=== PATIENT | male | born 1975 | race Caucasian/White ===

== ENCOUNTER 2023-06-29 08:56 | Emergency (ER) | payer OTHER, SELFPAY ==
--- NOTE | ~2023-06-29 | XR_ITS ---
EXAMINATION: XR finger 3rd RT min 2V DATE: 06/29/2023 09:11 INDICATION: Right hand third digit laceration. TECHNIQUE: 3 views of right hand third digit were obtained. COMPARISON: None. FINDINGS: Bone alignment is normal. No fracture. 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 There is soft tissue swelling of the third digit. IMPRESSION: 1. No fracture or radiopaque foreign body. Reviewed, dictated and finalized at location A.
[2023-06-29 08:57] VITALS: BP 148/97; PULSE 90; RESP 16; TEMP 36.3; O2SAT 98
--- NOTE | 2023-06-29 12:59 | ED.WOUNDLAC ---
HPI - Wound/Laceration General Chief Complaint: Wound/Laceration Stated Complaint: finger lac Time Seen by Provider: 06/29/23 09:06 History of Present Illness HPI narrative: 47-year-old male presents to the emergency room for evaluation of laceration of the right middle finger. Injury occurred yesterday at work. Patient states the transmission fell on his hand, where he attempted to remove his hand from underneath him causing a laceration. Tetanus was within the last 10 years. Related Data Allergies Allergy/AdvReac Type Severity Reaction Status Date / Time No Known Allergies Allergy Mild Verified 05/26/07 08:13 Review of Systems Review of Systems: Review of symptoms unremarkable except for noted in HPI PMFSH Family History Family History Father Family history of lung cancer Patient's father is Grandparent Diabetes mellitus Social History Social History Smoking status: Smoker, status unknown Alcohol intake: never Exam Narrative: GENERAL: Well-appearing, well-nourished, no physical limitations, and in no acute distress. HEAD: Normocephalic, atraumatic. EYES: Conjunctivae normal, PERRLA and EOMI. CHEST: Clear to auscultation. No respiratory distress. No wheezes rales or rhonchi. HEART: Regular rate and rhythm. No murmur heard. Normal peripheral pulses. EXTREMITIES: right middle finger: v-shaped laceration to scott surface of middle phalanx SKIN: Warm, dry, no rash. No noted wounds NEURO: No focal deficits. Alert and oriented x3. MAEW. CN's II-XI intact bilaterally, normal gait PSYCH: Cooperative. Normal mood and affect. Course Vital Signs Vital signs: Vital Signs Temperature 36.3 C L 06/29/23 08:57 Pulse Rate 90 06/29/23 08:57 Respiratory Rate 16 06/29/23 08:57 Blood Pressure 148/97 H 06/29/23 08:57 Pulse Oximetry 98 06/29/23 08:57 Temperature 36.3 C L 06/29/23 08:57 Pulse Rate 90 06/29/23 08:57 Respiratory Rate 16 06/29/23 08:57 Blood Pressure 148/97 H 06/29/23 08:57 Pulse Oximetry 98 06/29/23 08:57 Procedures Laceration Laceration 1: Site: hand Side (If applicable): right Size (cm): 2.5 Description: flap Depth: simple, single layer Local Anesthetic: lidocaine 1% Amount of anesthesia used (mL): 7 Pre-repair: irrigated extensively ====== Skin Level ====== Skin layer closed with: nylon Size (cm): 4-0 Number of sutures: 3 Technique: simple, interrupted ====== Subcutaneous Layer ====== ====== Muscle Layer ====== ====== Tendon Layer ====== Discharge Plan Discharge Clinical Impression: Laceration Patient Disposition: Home, Self-Care Condition: Stable Instructions: Antibiotic Form, Care For Your Stitches (ED), Laceration (ED) Prescriptions: New amoxicillin-pot clavulanate 875-125 mg tablet 1 tablet PO Q12H Qty: 14 0RF Follow-up/Referrals: UNKNOWN,DOCTOR [Primary Care Provider] - Time of Disposition: 13:02
== END 2023-06-29 13:28 | disposition home or self-care (01) ==
PROVIDERS: Emergency Provider Nurse Practitioner Family
DX: S61.212A Laceration without foreign body of right middle finger without damage to nail, initial encounter (principal); W20.8XXA Other cause of strike by thrown, projected or falling object, initial encounter
CPT/HCPCS: 12001; 73140; 99283